=== PATIENT | male | born 1975 | race Caucasian/White ===

== ENCOUNTER 2019-02-13 12:49 | Emergency (ER) | payer MEDICAID ==
[~2019-02-13] VITALS: Ht 165.1 cm; Wt 92.4 kg
[~2019-02-13 12:49] MED LIST: IBUP800T48 PO
[2019-02-13 12:53] VITALS: BP 159/94; PULSE 103; RESP 18; Ht 165.1 cm; Wt 92.4 kg
[2019-02-13] MEDS ORDERED: IBUPROFEN 800 MG TAB PO ONE (13:30)
== END 2019-02-13 14:13 | disposition home or self-care (01) ==
LOC: FTE 12:49
DX: M25.512 Pain in left shoulder (principal)
CPT/HCPCS: 73030; Z7502; Z7610